=== PATIENT | male | born 1945 | race Hispanic/Latino ===

== ENCOUNTER 2017-12-13 20:10 | Emergency (ER) | payer MEDICARE, MEDICAID ==
[2017-12-13 21:06] LABS: Hemoglobin 12.1 g/dL (14.0-18.0); Mean Corpuscular Hemoglobin 24.4 pg (27.0-31.0); Mean Corpuscular Volume 81.3 fL (78.0-98.0); Red Blood Cell (RBC) Count 4.97 mill/uL (4.70-6.10); White Blood Cell (WBC) Count 6.8 thou/uL (4.8-10.8)
[2017-12-13 21:17] LABS: ALT (SGPT) 7 U/L (8-55); AST (SGOT) 18 U/L (5-34); Albumin 3.8 g/dL (3.4-4.8); Alkaline Phosphatase 66 U/L (40-150); Anion Gap 18 mmol/L (10-20); BUN (Urea Nitrogen) 7 mg/dL (8.4-25.7); Bilirubin, Total 0.2 mg/dL (0.2-1.2); Calc. Creatinine Clearance 0 mL/min (70-130); Calcium 9.6 mg/dL (7.8-10.44); Carbon Dioxide 21 mmol/L (23-31); Chloride 107 mmol/L (98-107); Estimated GFR-MDRD 84; Globulin 3.8 g/dL (2.4-3.5); Glucose 114 mg/dL (83-110); Potassium 3.3 mmol/L (3.5-5.1); Protein, Total 7.6 g/dL (5.8-8.1); Sodium 143 mmol/L (136-145)
[2017-12-13 21:20] LABS: CKMB 2.7 ng/mL (0-6.6); Troponin I Less than 0.010 ng/mL (< 0.028)
[2017-12-13 21:23] LABS: #Eosinphils 0.3 thou/uL (0.0-0.7); #Monocytes 0.6 thou/uL (0.11-0.59); #Neutrophils 3.9 thou/uL (1.40-6.50); %Basophils 0.7 % (0.0-1.0); %Eosinophils 4.4 % (0.0-10.0); %Lymphocytes 29.2 % (21.0-51.0); %Monocytes 8.8 % (0.0-10.0); Eosinophils 3 % (0-10); Hypochromia SLIGHT = 6-15 cells (100X) (0-5/hpf); Lymphocytes 29 % (21-51); MDiff Complete? YES; Mean Platelet Volume 9.8 fL (7.4-10.4); Monocytes 1 % (0-10); Neutrophil 67 % (42-75); PLT Morphology Comment Appears Adequate; Platelet Count 312 thou/uL (130-400); RBC Distribution Width 21.8 % (11.5-14.5)
--- NOTE | 2017-12-13 21:53 | RAD ---
FRONTAL VIEW CHEST: 12/13/17 INDICATION: Shortness of breath. FINDINGS: There is enlargement of the cardiac silhouette and bilateral interstitial opacification. No effusion or discrete pneumothorax. IMPRESSION: Findings of CHF, with mild edema. POS: [facility]
[2017-12-13] MEDS ORDERED: Potassium Bicarbonate/Cit Ac 25 MEQ TAB ONE (23:23)
[2017-12-13] MEDS ORDERED: Famotidine/PF 20 mg/2ml Vial ONE (23:23)
== END 2017-12-13 23:53 | disposition home or self-care (01) ==
LOC: ERS 20:10
DX: K29.20 Alcoholic gastritis without bleeding (principal); D64.9 Anemia, unspecified; I10 Essential (primary) hypertension; F17.200 Nicotine dependence, unspecified, uncomplicated
CPT/HCPCS: 36415; 71045; 80053; 82553; 83605; 83880; 84484; 85025; 93005; 94760; 96374; S0028